=== PATIENT | female | born 1955 | race Caucasian/White ===

== ENCOUNTER 2020-11-08 21:10 | Inpatient (IN) ==
[2020-11-09 04:57] LABS: Basophils # 0.1 K/mcL (0.0-0.2); Basophils % 0.4 %; Eosinophils # 0.2 K/mcL (0.0-0.6); Eosinophils % 0.9 %; Hematocrit 39.7 % (35.3-44.9); Hemoglobin 13.3 g/dL (11.5-15.4); Immature Granulocytes % 0.7 % (0-4); Lymphocytes % 9.2 %; Mean Corpuscular HGB Conc 33.5 g/dL (31.6-35.5); Mean Corpuscular Hemoglobin 28.7 pg (28.0-33.3); Mean Corpuscular Volume 85.6 fL (83.0-100.0); Mean Platelet Volume 10.1 fL (9.4-12.4); Monocytes # 1.7 K/mcL (0.0-1.3); Neutrophils # 17.1 K/mcL (1.6-8.9); Platelet Count 294 K/mcL (140-400); Red Blood Count 4.64 M/mcL (3.82-4.97); Red Cell Distribution Width 12.8 % (11.5-14.5); Segmented Neutrophils % 80.8 %; White Blood Count 21.2 K/mcL (4.3-11.1)
[2020-11-09 05:17] LABS: BUN/Creatinine Ratio 23 (6-26); Blood Urea Nitrogen 18 mg/dL (8-23); Calcium 9.9 mg/dL (8.6-10.3); Carbon Dioxide 24 mEq/L (23-29); Chloride 100 mEq/L (98-107); Glucose 157 mg/dL (70-105); Osmolality,Calculated 285 (280-300); Potassium 3.9 mEq/L (3.5-5.1); Sodium 135 mEq/L (136-145); eGFR For African Americans > 60 (> 60); eGFR For Non-African Americans > 60 (> 60)
[2020-11-09 05:18] LABS: Troponin I < 0.03 ng/mL (< 0.04)
[2020-11-09] MEDS ORDERED: Isovue-370 500 ML BOTTLE IVP ONE (05:20)
[2020-11-09 05:22] LABS: Influenza A PCR Negative (Negative); Influenza B PCR Negative (Negative); Resp. Syncytial Virus PCR Negative (Negative)
[2020-11-09 05:23] LABS: SARS-CoV-2 by PCR (In House) Negative (Negative)
[2020-11-09] MEDS ORDERED: cefTRIAXone 1,000 MG in 0.9 % Sodium Chloride Mini Bag 100 ML IVPB ONE ×2 (06:30→09:05)
[2020-11-09] MEDS ORDERED: Azithromycin 500 MG in 0.9 % Sodium Chloride 250 ML IVPB ONE (06:31)
[2020-11-09] MEDS ORDERED: Ipratropium/Albuterol Neb 3 ML IH ONE (06:39)
[2020-11-09] MEDS ORDERED: 0.9 % Sodium Chloride 1,000 ML IVC ONE (07:06)
[2020-11-09] MEDS ORDERED: Naloxone 0.4 MG/ML INJ IVP PRN (08:51)
[2020-11-09] MEDS ORDERED: Melatonin 3 MG TABLET PO PRN (09:01)
[2020-11-09] MEDS ORDERED: Ondansetron 4 MG/2 ML VIAL IVP PRN (09:01)
[2020-11-09] MEDS ORDERED: Acetaminophen 325 MG TABLET PO PRN (09:01)
[2020-11-09] MEDS ORDERED: *HR* HYDROcodone/Acet 5/325 mg TABLET PO PRN (09:01)
[2020-11-09] MEDS ORDERED: Dextrose Gel 15 GM/37.5 ML TUBE PO PRN ×2 (09:07)
[2020-11-09] MEDS ORDERED: *HR* Dextrose 50 % in Water (Vial) 50 ML VIAL IVP PRN (09:07)
[2020-11-09] MEDS ORDERED: D5% in Water 1,000 ML IVC PRN (09:07)
[2020-11-09] MEDS ORDERED: Ringers Solution, Lactated 1,000 ML IVC SCH (10:45)
[2020-11-09] MEDS ORDERED: Nicotine 2 MG GUM BC PRN (10:45)
[2020-11-09] MEDS ORDERED: Saline Nasal Spray 44 ML BOTTLE NS PRN (10:53)
[2020-11-09] MEDS ORDERED: Artificial Tears SOLN 15 ML BOTTLE BOTH EYES PRN (10:53)
[2020-11-09] MEDS ORDERED: Perflutren Lipid Microsphere 1.3 ML in 0.9 % Sodium Chloride 8.7 ML IVP PRN (11:07)
[2020-11-09 11:59] LABS: Phosphorous 2.3 mg/dL (2.7-4.5)
[2020-11-09] MEDS ORDERED: Ipratropium/Albuterol Neb 3 ML IH SCH (12:00)
[2020-11-09 12:01] LABS: Troponin I 0.1 ng/mL (< 0.04)
[2020-11-09] MEDS: Levalbuterol Neb 1.25 MG/3 ML IH SCH ×3 (12:11→20:50)
[2020-11-09] MEDS: Ipratropium Neb 0.5 MG NEBULIZER IH SCH ×3 (12:11→20:50)
[2020-11-09] MEDS: Budesonide/Formoterol 160/4.5 1 PUFF INH IH SCH ×2 (12:11→20:51)
[2020-11-09 12:17] LABS: Chol/HDL Ratio 2.8 (0-4.9)
[2020-11-09] MEDS: Fluticasone Propionate Nasal 50 MCG/SPRAY BOTTLE NS SCH (12:22)
[2020-11-09] MEDS: Nicotine 21 MG PATCH.TD24 TD SCH (12:23)
[2020-11-09 13:05] LABS: Thyroid Stimulating Hormone 1.162 mcIU/mL (0.340-5.600)
[2020-11-09] MEDS: Insulin LISPRO 300 UNITS/3 ML VIAL SUBQ SCH ×2 (13:22→17:31)
[2020-11-09] MEDS: MethylPREDNISolone 40 MG/ML VIAL IVP SCH ×2 (17:26→23:43)
[2020-11-09 17:53] LABS: Estimated Average Glucose 108 mg/dl; Hemoglobin A1C 5.4 %
[2020-11-09 20:22] LABS: Adenovirus Not Detected (Not Detect); Bordetella Pertussis Not Detected (Not Detect); Chlamydophila pneumoniae Not Detected (Not Detect); Coronavirus 229E Not Detected (Not Detect); Coronavirus HKU1 Not Detected (Not Detect); Coronavirus NL63 Not Detected (Not Detect); Coronavirus OC43 Not Detected (Not Detect); Human Metapneumovirus Not Detected (Not Detect); Human Rhinovirus/Enterovirus Not Detected (Not Detect); Influenza A Subtype 2009 H1 Not Detected (Not Detect); Influenza B Not Detected (Not Detect); Mycoplasma pneumoniae Not Detected (Not Detect); Parainfluenza Virus 1 Not Detected (Not Detect); Parainfluenza Virus 2 Not Detected (Not Detect); Parainfluenza Virus 3 Not Detected (Not Detect); Parainfluenza Virus 4 Not Detected (Not Detect); Respiratory Syncytial Virus Not Detected (Not Detect); SARS-CoV-2 Not Detected (Not Detect)
[2020-11-09] MEDS: Chlorhexidine Rinse 15 ML MOUTHWASH MM SCH (20:44)
[2020-11-10] MEDS: Levalbuterol Neb 1.25 MG/3 ML IH SCH ×4 (05:07→21:05)
[2020-11-10] MEDS: Ipratropium Neb 0.5 MG NEBULIZER IH SCH ×4 (05:07→21:05)
[2020-11-10] MEDS: *HR* Enoxaparin 40 MG/0.4 ML SYRINGE SQ SCH (06:37)
[2020-11-10 07:47] LABS: Basophils # 0.1 K/mcL (0.0-0.2); Basophils % 0.5 %; Eosinophils % 0.1 %; Hematocrit 37.1 % (35.3-44.9); Hemoglobin 12.1 g/dL (11.5-15.4); Lymphocytes # 1.7 K/mcL (0.6-4.6); Lymphocytes % 9.8 %; Mean Corpuscular HGB Conc 32.6 g/dL (31.6-35.5); Mean Corpuscular Hemoglobin 28.6 pg (28.0-33.3); Mean Corpuscular Volume 87.7 fL (83.0-100.0); Mean Platelet Volume 10.2 fL (9.4-12.4); Monocytes # 0.3 K/mcL (0.0-1.3); Monocytes % 1.5 %; Neutrophils # 15.3 K/mcL (1.6-8.9); Platelet Count 344 K/mcL (140-400); Red Blood Count 4.23 M/mcL (3.82-4.97); Red Cell Distribution Width 12.9 % (11.5-14.5); Segmented Neutrophils % 86.1 %; White Blood Count 17.8 K/mcL (4.3-11.1)
[2020-11-10] MEDS ORDERED: Azithromycin 250 MG TABLET PO SCH (09:00)
[2020-11-10] MEDS: Insulin LISPRO 300 UNITS/3 ML VIAL SUBQ SCH ×3 (09:40→17:42)
[2020-11-10] MEDS: Nicotine 21 MG PATCH.TD24 TD SCH (09:41)
[2020-11-10] MEDS: cefTRIAXone 2,000 MG in 0.9 % Sodium Chloride Mini Bag 100 ML IVPB SCH (09:41)
[2020-11-10] MEDS: MethylPREDNISolone 40 MG/ML VIAL IVP SCH (09:41)
[2020-11-10] MEDS: Chlorhexidine Rinse 15 ML MOUTHWASH MM SCH ×2 (09:45→20:47)
[2020-11-10] MEDS: Lactobacillus 1 EACH CAP.SPRINK PO SCH ×2 (09:45→20:46)
[2020-11-10] MEDS: Fluticasone Propionate Nasal 50 MCG/SPRAY BOTTLE NS SCH (09:46)
[2020-11-10] MEDS: Budesonide/Formoterol 160/4.5 1 PUFF INH IH SCH ×2 (10:17→21:05)
[2020-11-10 10:59] LABS: Chloride 99 mEq/L (98-107); Glucose 147 mg/dL (70-105); Phosphorous 2.4 mg/dL (2.7-4.5); Sodium 133 mEq/L (136-145)
[2020-11-10 12:58] LABS: BUN/Creatinine Ratio 17 (6-26); Blood Urea Nitrogen 11 mg/dL (8-23); Carbon Dioxide 23 mEq/L (23-29); Osmolality,Calculated 278 (280-300); eGFR For African Americans > 60 (> 60); eGFR For Non-African Americans > 60 (> 60)
[2020-11-10] MEDS ORDERED: MethylPREDNISolone 40 MG/ML VIAL IVP SCH (20:00)
[2020-11-11] MEDS: Levalbuterol Neb 1.25 MG/3 ML IH SCH ×2 (03:18→11:07)
[2020-11-11] MEDS: Ipratropium Neb 0.5 MG NEBULIZER IH SCH ×2 (03:18→11:07)
[2020-11-11] MEDS: *HR* Enoxaparin 40 MG/0.4 ML SYRINGE SQ SCH (05:59)
[2020-11-11 06:23] LABS: Mean Platelet Volume 9.7 fL (9.4-12.4); Platelet Count 389 K/mcL (140-400)
[2020-11-11 06:25] LABS: Hematocrit 33.8 % (35.3-44.9); Hemoglobin 10.9 g/dL (11.5-15.4); Mean Corpuscular HGB Conc 32.2 g/dL (31.6-35.5); Mean Corpuscular Hemoglobin 28.1 pg (28.0-33.3); Mean Corpuscular Volume 87.1 fL (83.0-100.0); Red Blood Count 3.88 M/mcL (3.82-4.97); Red Cell Distribution Width 13.1 % (11.5-14.5); White Blood Count 25.4 K/mcL (4.3-11.1)
[2020-11-11 07:06] LABS: BUN/Creatinine Ratio 21 (6-26); Blood Urea Nitrogen 16 mg/dL (8-23); Calcium 9.3 mg/dL (8.6-10.3); Carbon Dioxide 28 mEq/L (23-29); Chloride 99 mEq/L (98-107); Glucose 140 mg/dL (70-105); Magnesium 2.2 mg/dL (1.6-2.6); Osmolality,Calculated 281 (280-300); Phosphorous 2.8 mg/dL (2.7-4.5); Potassium 4.4 mEq/L (3.5-5.1); Sodium 134 mEq/L (136-145); eGFR For African Americans > 60 (> 60); eGFR For Non-African Americans > 60 (> 60)
[2020-11-11] MEDS: Insulin LISPRO 300 UNITS/3 ML VIAL SUBQ SCH (07:50)
[2020-11-11 08:57] VITALS: BP 135/64; PULSE 87; TEMP 98.1
[2020-11-11] MEDS ORDERED: predniSONE 20 MG TABLET PO SCH (09:00)
[2020-11-11] MEDS: Chlorhexidine Rinse 15 ML MOUTHWASH MM SCH (09:15)
[2020-11-11] MEDS: cefTRIAXone 2,000 MG in 0.9 % Sodium Chloride Mini Bag 100 ML IVPB SCH (09:16)
[2020-11-11] MEDS: Lactobacillus 1 EACH CAP.SPRINK PO SCH (09:16)
[2020-11-11] MEDS: Fluticasone Propionate Nasal 50 MCG/SPRAY BOTTLE NS SCH (09:16)
[2020-11-11] MEDS: Nicotine 21 MG PATCH.TD24 TD SCH (09:16)
[2020-11-11 09:37] LABS: Lymphocytes # 3.8 K/mcL (0.6-4.6); Monocytes # 0.3 K/mcL (0.0-1.3); Neutrophils # 21.3 K/mcL (1.6-8.9); Platelet Estimate Normal (Normal)
[2020-11-11] MEDS: Budesonide/Formoterol 160/4.5 1 PUFF INH IH SCH (11:09)
[2020-11-11 11:13] VITALS: O2SAT 97
== END 2020-11-11 12:55 | disposition home or self-care (01) | DRG 871 ==
LOC: EMEROOARM 21:10 → 3NENU 21:10 → SUATTDRO 11-09 10:44 → 3BNU 11-11 08:26
PROVIDERS: ADMIT Internal Medicine; ATTEND Internal Medicine